=== PATIENT | male | born 1960 | race Caucasian/White ===

== ENCOUNTER → 2018-02-25 | Outpatient (CLI) | payer BC ==
--- NOTE | 2018-02-25 10:52 | PCVCIMAG ---
APPROVED REPORT Study performed: 02/25/2018 08:41:46 EXAM: Comprehensive 2D, Doppler, and color-flow Echocardiogram Patient Location: Echo lab Status: routine BSA: 2.29 HR: 63 bpmBP: 142/100 mmHg Rhythm: NSR Other Information Study Quality: Adequate Risk Factors: Cardiac Risk Factors: HTN, Hyperlipidemia Indications Elevated calcium score 2D Dimensions IVSd: 13.63 (7-11mm) LVDd: 38.77 mm PWd: 11.89 (7-11mm)Ascending Ao: 34.97 (22-36mm) LVDs: 28.05 (25-40mm) Left Atrium: 33.52 (27-40mm) Aortic Root: 36.08 mm LV Single Plane 4CH: 42.29 % LV Single Plane 2CH: 54.45 % Biplane EF: 48.2 % Volumes Left Atrial Volume (Systole) Single Plane 4CH: 43.19 mLSingle Plane 2CH: 57.69 mL LA ESV Index: 22.00 mL/m2 Aortic Valve AoV Peak Arnol.: 1.22 m/s AO Peak Gr.: 5.95 mmHgLVOT Max P.56 mmHg LVOT Max V: 0.94 m/s Mitral Valve E/A Ratio: 0.7 MV Decel. Time: 277.52 ms MV E Max Arnol.: 0.32 m/s MV A Arnol.: 0.49 m/s IVRT: 131.49 ms Pulmonary Valve PV Peak Arnol.: 0.86 m/sPV Peak Gr.: 2.99 mmHg Pulmonary Vein P Vein S: 0.23 m/sP Vein A: 0.33 m/s P Vein D: 0.26 m/sP Vein A Dur.: 121.1 msec P Vein S/D Ratio: 0.88 Tricuspid Valve TR Peak Arnol.: 2.30 m/s TR Peak Gr.: 21.25 mmHg Left Ventricle The left ventricle is normal size. There is normal LV segmental wall motion. Mild concentric left ventricular hypertrophy. Left ventricular systolic function is within lower limits of normal. LVEF is 50%. Grade I - abnormal relaxation pattern. Right Ventricle The right ventricle is normal size. The right ventricular systolic function is normal. Atria The left atrium size is normal. The right atrium size is normal. Aortic Valve The aortic valve is normal in structure. Aortic sinus of valsalva mildly dilated to 4.1 cm. Mild aortic regurgitation. There is no aortic valvular stenosis. Mitral Valve The mitral valve is normal in structure. Trace mitral regurgitation. No evidence of mitral valve stenosis. Tricuspid Valve The tricuspid valve is normal in structure. Trace tricuspid regurgitation with PAP of 28 mmHg. Pulmonic Valve The pulmonary valve is normal in structure. Trace pulmonic regurgitation. Great Vessels The aortic root is normal in size. IVC is normal in size and collapses >50% with inspiration. Pericardium There is no pericardial effusion. There is no pleural effusion. <Conclusion> The left ventricle is normal size. LVEF is 50%. The aortic valve is normal in structure. Aortic sinus of valsalva mildly dilated to 4.1 cm. Mild aortic regurgitation. The mitral valve is normal in structure. Trace mitral regurgitation. The tricuspid valve is normal in structure. Trace tricuspid regurgitation with PAP of 28 mmHg. The pulmonary valve is normal in structure. Trace pulmonic regurgitation. There is no pericardial effusion. The aortic root is normal in size.
--- NOTE | 2018-02-25 10:55 | PCVCIMAG ---
APPROVED REPORT Study performed: 02/25/2018 09:36:13 Exam: Stress Echocardiogram Indication: elevated coronary calcium score>700, HTN, HLP Patient Location: Echo lab Stress Nurse: Reny Potter RN Status: routine Ht: 6 ft 2 in HR: 83 bpm BP: 142/100 mmHg Rhythm: NSR Procedure The patient underwent an Exercise Stress Test using the Elvin Protocol. Blood pressure, heart rate, and EKG were monitored. An Echocardiogram was performed by hydraulic controls technician in four stages in quad fashion. At peak stress, four selected images were obtained and placed side by side with resting images for comparison. Stress Test Details Stress Test: Exercise stress testing was performed using a Elvin protocol. HR Resting HR: 83 bpmMax Heart Rate (APMHR): 164 bpm Max HR Achieved: 153 bpmTarget HR (85% APMHR): 139 bpm % of APMHR: 93 Recovery HR: 104 bpm HR response to stress: Normal HR response to stress BP Resting BP: 142/100 mmHg Max BP: 180/100 mmHg Recovery BP: 140/98 mmHg ECG Resting ECG: Sinus Rhythm, nonspecific ST-T abnormalities Stress ECG: Sinus Rhythm ST Change: Normal Arrhythmia: rare isolated PVCs Recovery ECG: Sinus Rhythm Recovery ST Change: Normal Recovery Arrhythmia: None Clinical Reason for Termination: Maximal effort Stress Symptoms: Dyspnea Exercise duration: 10 min sec Highest Stage Achieved: Stage 4: 4.2 mph at 16% grade. Exercise capacity: 13.4 METs Overall Exercise Capacity for Age: Good Scale: Active Angina Score: None Stress ECG Conclusion 1. Subjectively negative for ischemia 2. Electrocardiographically negative for ischemia 3. satisfactory functional capacity Pre-Stress Echo The resting Echocardiogram showed normal left ventricular contractility with an estimated Ejection Fraction of about 50%. Normal wall motion in all segments on baseline images. Post-Stress Echo The stress Echocardiogram showed normal left ventricular contractility with an estimated Ejection Fraction of about 60%. Normal augmentation of wall motion in all segments on post stress images. Clinical No clinical or ECG evidence for ischemia. Conclusion Clinical Response: Non-ischemic Exercise Capacity: Average Stress ECG Response: Non-ischemic Stress Echo Images: Non-ischemic The left ventricle is normal in size and wall thickness in both the rest and stress images. 1. low risk study Other Information Study Quality: Adequate <Conclusion> The left ventricle is normal in size and wall thickness in both the rest and stress images. 1. low risk study
== END | disposition home or self-care (01) ==
LOC: PCVCIMAG 11:56
PROVIDERS: ATTEND Internal Medicine
DX: I25.10 Atherosclerotic heart disease of native coronary artery without angina pectoris (principal); I10 Essential (primary) hypertension; R93.1 Abnormal findings on diagnostic imaging of heart and coronary circulation
CPT/HCPCS: 93306; 93351